=== PATIENT | male | born 1960 | race Caucasian/White ===

== ENCOUNTER 2021-05-22 14:27 | Emergency (ER) | payer BC, OTHER ==
[2021-05-22 15:11] LABS: Urine Blood 3+ (Negative); Urine Glucose Negative (Negative); Urine Protein Negative (Negative); Urine pH 5.5 (5.0-7.0)
[2021-05-22 15:18] LABS: Absolute Lymphocytes (CBC) 1.2 K/uL (0.7-4.9); Basophils % 0.5 % (0-1.3); Hematocrit 45.7 % (39.6-49.0); Lymphocytes % 8.5 % (15.3-44.8); MPV 8.8 fL (7.6-11.3); RBC Red Blood Cell Count 5.15 M/uL (4.33-5.43)
[2021-05-22 15:40] LABS: Albumin 4.1 g/dL (3.4-5.0); Bilirubin Direct 0.1 mg/dL (0-0.2); Potassium 4.3 mmol/L (3.5-5.1); Protein, Total 7.8 g/dL (6.4-8.2)
[2021-05-22 16:17] LABS: Urine Bacteria <20 /HPF (NONE SEEN); Urine Mucus 2+ /HPF (NONE SEEN); Urine RBC >50 /HPF (NONE SEEN)
--- NOTE | 2021-05-22 16:17 | RAD REPORT ---
EXAM DESCRIPTION: CTAbdomen Pelvis W Contrast - 05/22/2021 4:06 pm CLINICAL HISTORY: Abdominal pain. Difficulty urinating COMPARISON: No comparisons TECHNIQUE: Biphasic CT imaging of the abdomen and pelvis was performed with 100 ml non-ionic IV cont rast. All CT scans are performed using dose optimization technique as appropriate and may include automated exposure control or mA/KV adjustment according to patient size. FINDINGS: The lung bases are clear. Mild fatty liver is seen with a small hepatic cysts present. The spleen, pancreas, adrenal glands and kidneys are within normal limits. No bowel obstruction, free air, free fluid or abscess. The appendix is normal. No evidence of signi ficant lymphadenopathy. Assessment of intrapelvic structures is limited by significant streak artifact a Gao catheter is no gloria in the urinary bladder. Moderate lumbar degenerative changes. IMPRESSION: No acute intra-abdominal or pelvic finding. There is significant streak artifact reducing image quality of the pelvis.
[2021-05-22 16:31] LABS: Blood Morphology Comment NOT SEEN (NOT SEEN); Platelet Estimate ADEQ; White Blood Cell Scan OK (OK)
--- NOTE | 2021-05-22 16:40 | EDPHYS ---
Physician Documentation [facility] Name: Chavo Freitas Age: 61 yrs Sex: Male : 1960 Arrival Date: 05/22/2021 Time: 14:31 Bed 18 Private MD: ED Physician Balbir Lundberg HPI: 05/22 15:20 This 61 yrs old Male presents to ER via Ambulatory with complaints of Urinary pm1 Problem. 15:20 Onset: The symptoms/episode began/occurred yesterday. pm1 15:20 The patient presents with urinary symptoms, unable to void. Modifying factors: The pm1 symptoms are alleviated by nothing, the symptoms are aggravated by nothing. Associated signs and symptoms: Pertinent negatives: abdominal pain, constipation, fever, nausea, vomiting. Severity of symptoms: in the emergency department the symptoms are unchanged. The patient has not experienced similar symptoms in the past. The patient has not recently seen a physician. Patient recently taking cough congestion medication. Historical: - Allergies: 14:36 No Known Allergies; ll1 - PMHx: 14:36 None; ll1 - PSHx: 14:36 hip replacements; ll1 - Immunization history:: Client reports receiving the [place] \T\ [place] single-dose vaccine. Flu vaccine status is unknown. - Social history:: Smoking status: Patient denies any tobacco usage or history of. ROS: 15:20 Constitutional: Negative for fever, chills, and weight loss, Cardiovascular: Negative pm1 for chest pain, palpitations, and edema, Respiratory: Negative for shortness of breath, cough, wheezing, and pleuritic chest pain, Abdomen/GI: Negative for abdominal pain, nausea, vomiting, diarrhea, and constipation. 15:20 MS/Extremity: Negative for injury and deformity, Skin: Negative for injury, rash, and discoloration, Neuro: Negative for headache, weakness, numbness, tingling, and seizure. 15:20 : Positive for difficulty urinating. 15:20 All other systems are negative. Exam: 15:20 Constitutional: This is a well developed, well nourished patient who is awake, alert, pm1 and in no acute distress. Head/Face: Normocephalic, atraumatic. 15:20 Back: No spinal tenderness. No costovertebral tenderness. Full range of motion. Skin: Warm, dry with normal turgor. Normal color with no rashes, no lesions, and no evidence of cellulitis. MS/ Extremity: Pulses equal, no cyanosis. Neurovascular intact. Full, normal range of motion. 15:20 Eyes: Exam is negative for acute changes, Extraocular movements: intact throughout, Conjunctiva: no acute changes, no injection. 15:20 ENT: Exam is negative for acute changes, Mouth: no acute changes, Lips: normal, moist, Oral mucosa: normal, pink and intact, moist. 15:20 Cardiovascular: Exam negative for acute changes, Rate: normal, Rhythm: regular, Pulses: no pulse deficits are appreciated. 15:20 Respiratory: Exam negative for acute changes, respiratory distress, shortness of breath, Breath sounds: are clear throughout. 15:20 Abdomen/GI: Inspection: abdomen appears normal, Palpation: abdomen is soft and non-tender, in all quadrants. 15:20 Neuro: Exam negative for acute changes, Orientation: is normal, Mentation: is normal, Motor: is normal, moves all fours. Vital Signs: 14:36 BP 167 / 89; Pulse 97; Resp 17; Temp 98.2; Pulse Ox 99% ; Weight 80.74 kg; Height 5 ft. ll1 11 in. (180.34 cm); Pain 1/10; 14:36 Body Mass Index 24.83 (80.74 kg, 180.34 cm) ll1 MDM: 14:46 Patient medically screened. pm1 16:38 Data reviewed: vital signs. Data interpreted: Pulse oximetry: on room air is 99 %. pm1 Interpretation: normal. Counseling: I had a detailed discussion with the patient and/or guardian regarding: the historical points, exam findings, and any diagnostic results supporting the discharge/admit diagnosis, lab results, radiology results, the need for outpatient follow up, for definitive care, a urologist, to return to the emergency department if symptoms worsen or persist or if there are any questions or concerns that arise at home. 16:42 Refusal of service: The patient/guardian displays adequate decision making capability pm1 and despite a detailed discussion of alternatives, benefits, risks, and consequences refuses: To keep Gao catheter in. Patient requested to be discharged home without catheter. 05/22 14:45 Order name: Basic Metabolic Panel pm1 05/22 14:45 Order name: CBC with Diff pm1 05/22 14:45 Order name: Hepatic Function; Complete Time: 16:37 pm1 05/22 14:45 Order name: Lipase; Complete Time: 16:37 pm1 05/22 14:45 Order name: Urine Microscopic Only; Complete Time: 16:37 pm05/22 14:46 Order name: Basic Metabolic Panel; Complete Time: 16:37 EDMS 05/22 14:45 Order name: IV Saline Lock; Complete Time: 15:07 pm05/22 14:45 Order name: Labs collected and sent; Complete Time: 15:07 pm05/22 14:45 Order name: CT Abd/Pelvis - IV Contrast Only; Complete Time: 16:37 pm05/22 14:45 Order name: Bladder Scanner; Complete Time: 15:05 pm05/22 14:45 Order name: Urine Dipstick-Ancillary (obtain specimen); Complete Time: 15:11 pm05/22 14:46 Order name: CBC with Automated Diff; Complete Time: 16:37 EDMS 05/22 15:12 Order name: Urine Dipstick-Ancillary; Complete Time: 15:21 EDMS 05/22 15:20 Order name: CBC Smear Scan; Complete Time: 16:37 EDMS 05/22 14:52 Order name: Gao; Complete Time: 15:05 pm05/22 16:38 Order name: Leg Bag; Complete Time: 16:51 pm1 Administered Medications: No medications were administered Disposition Summary: 05/22/21 16:39 Discharge Ordered Location: Home pm1 Problem: new pm1 Symptoms: have improved pm1 Condition: Stable pm1 Diagnosis - Retention of urine, unspecified pm1 Followup: pm1 - With: Emergency Department - When: As needed - Reason: Worsening of condition Followup: pm1 - With: Private Physician - When: 2 - 3 days - Reason: Recheck today's complaints, Continuance of care, Re-evaluation by your physician Discharge Instructions: - Discharge Summary Sheet pm1 - Acute Urinary Retention, Male pm1 Forms: - Medication Reconciliation Form pm1 - Thank You Letter pm1 - Antibiotic Education pm1 - Prescription Opioid Use pm1 Addendum: 05/28/2021 04:39 Co-signature as Attending Physician, Balbir Lundberg MD PA/BMX RIDER's history reviewed, m a2 patient interviewed, and examined. I agree with assessment and care plan and confirm the diagnosis (es) above. Signatures: Dispatcher [employer] EDDelonte Galvan, BMX RIDER BMX RIDER pm1 Balbir Lundberg MD MD ma2 Abimael Haskins RN RN ll1
--- NOTE | 2021-05-22 16:40 | ER ---
Nurse's Notes [facility] Name: Chavo Freitas Age: 61 yrs Sex: Male : 1960 Arrival Date: 05/22/2021 Time: 14:31 Bed 18 Private MD: Diagnosis: Retention of urine, unspecified Presentation: 05/22 14:36 Chief complaint: Patient states: Unable to urinate well since last night. No fever. No ll1 significant pain,. Coronavirus screen: Vaccine status: Patient reports receiving the 1st dose of the Covid vaccine. Client denies travel out of the [place] in the last 14 days. At this time, the client does not indicate any symptoms associated with coronavirus-19. Ebola Screen: Patient denies travel to an Ebola-affected area in the 21 days before illness onset. Initial Sepsis Screen: Does the patient meet any 2 criteria? HR > 90 bpm. No. Patient's initial sepsis screen is negative. Does the patient have a suspected source of infection? Yes: Dysuria/Frequency/Urgency/UTI. Risk Assessment: Do you want to hurt yourself or someone else? Patient reports no desire to harm self or others. Onset of symptoms was May 21, 2021. 14:36 Method Of Arrival: Ambulatory ll1 14:36 Acuity: MARGARITO 3 ll1 Historical: - Allergies: 14:36 No Known Allergies; ll1 - PMHx: 14:36 None; ll1 - PSHx: 14:36 hip replacements; ll1 - Immunization history:: Client reports receiving the [place]ango \T\ Ch[place]ango single-dose vaccine. Flu vaccine status is unknown. - Social history:: Smoking status: Patient denies any tobacco usage or history of. Screenin:46 Abuse screen: Denies threats or abuse. Denies injuries from another. Nutritional tr6 screening: No deficits noted. Tuberculosis screening: No symptoms or risk factors identified. Fall Risk None identified. Assessment: 15:46 General: Appears in no apparent distress. uncomfortable, Behavior is calm, cooperative, tr6 appropriate for age. Pain: Complains of pain in lower abdomen. Neuro: No deficits noted. Cardiovascular: No deficits noted. Respiratory: No deficits noted. GI: Bowel sounds present X 4 quads. Abdomen is tender to palpation. : Reports inability to void, since last night. EENT: No deficits noted. Derm: No deficits noted. Musculoskeletal: No deficits noted. 17:05 Reassessment: LAUREN Plummer discussed results and POC with pt. pt verbalized understanding tr6 and would like the bhatti removed. Bhatti removed by this RN and pt tolerated well. pt understands that it is possible to have retention once again. pt verbalized understanding and understands that he will have to come back to the ED if problem persists.. Vital Signs: 14:36 BP 167 / 89; Pulse 97; Resp 17; Temp 98.2; Pulse Ox 99% ; Weight 80.74 kg; Height 5 ft. ll1 11 in. (180.34 cm); Pain 1/10; 14:36 Body Mass Index 24.83 (80.74 kg, 180.34 cm) ll1 ED Course: 14:31 Patient arrived in ED. mr 14:36 Arm band placed on. ll1 14:37 Triage completed. ll1 14:39 Lorna Taylor, ANANDA is Primary Nurse. tr6 14:40 Delonte Plummer NP is PHCP. pm1 14:40 Balbir Lundberg MD is Attending Physician. pm1 15:04 Bladder scan completed. 850. Bhatti cath inserted, using sterile technique, 16 Fr., by mt id, balloon inflated, to gravity drainage, returned clear yellow urine. Patient tolerated well. 15:30 Inserted saline lock: 20 gauge in right antecubital area, using aseptic technique. tr6 Blood collected. 15:46 No apparent distress. Resting quietly. Awaiting lab results. tr6 15:46 Patient has correct armband on for positive identification. Placed in gown. Bed in low tr6 position. Call light in reach. Pulse ox on. NIBP on. Door closed. Noise minimized. Visitors limited. Lights dimmed. Moved to private room. Warm blanket given. Diet: Patient is NPO. 15:46 No provider procedures requiring assistance completed. Patient maintains SpO2 tr6 saturation greater than 95% on room air. 15:[address] tr6 16:05 CT Abd/Pelvis - IV Contrast Only In Process Unspecified. EDMS 16:50 IV discontinued, intact, bleeding controlled, No redness/swelling at site. Pressure tr6 dressing applied. 17:04 Bhatti cath removed intact, balloon deflated. tr6 Administered Medications: No medications were administered Output: 15:04 Urine: 1000ml (Bhatti); Total: 1000ml. mt 17:00 Urine: 400ml (Bhatti); Total: 1400ml. tr6 Outcome: 16:39 Discharge ordered by . pm1 16:49 Discharged to home ambulatory. tr6 16:49 Condition: good 16:49 Discharge instructions given to patient, Instructed on discharge instructions, follow up and referral plans. safety practices, Demonstrated understanding of instructions, follow-up care, Prescriptions given X 17:05 Patient left the ED. tr6 Signatures: Dispatcher [employer] EDAK DevaughnLiseth mr PlummerDelonte, TECHNICAL RECRUITER TECHNICAL RECRUITER pm1 Mariely Holt mt, Lynsay RN RN ll1 Lorna Taylor RN RN tr6
[2021-05-22 17:33] VITALS: BP 167/89; TEMP 98.2; O2SAT 99
== END 2021-05-22 17:05 | disposition home or self-care (01) ==
LOC: ER 14:27
DX: R33.9 Retention of urine, unspecified (principal)
CPT/HCPCS: 85025; 80048; 36415; 80076; 83690; 74177; 51702; 99285; Q9967; 81003; 81015

== ENCOUNTER 2021-05-23 13:59 | Emergency (ER) | payer BC ==
[2021-05-23 14:48] LABS: Urine Blood 3+ (Negative); Urine Glucose Negative (Negative); Urine Protein Negative (Negative)
[2021-05-23 15:21] LABS: Urine Bacteria <20 /HPF (NONE SEEN); Urine Mucus SLIGHT /HPF (NONE SEEN); Urine RBC >50 /HPF (NONE SEEN)
--- NOTE | 2021-05-23 15:55 | ER ---
Nurse's Notes [facility] Name: Chavo Freitas Age: 61 yrs Sex: Male : 1960 Arrival Date: 05/23/2021 Time: 14:00 Bed 17 Private MD: Diagnosis: Retention of urine, unspecified Presentation: 05/23 14:10 Chief complaint: Patient states: Pt stated, " I was just here yesterday and they stated kg that I needed to keep the catheter in but I told them I didn't want to keep it in and I think that was a mistake. It jaramillo really bad when I urinate, barely a squirt will come out but I also haven't been drinking anything.". Coronavirus screen: Vaccine status: Patient reports receiving the 1st dose of the Covid vaccine. Date November 06, 2020 [facility] Client denies travel out of the [place] in the last 14 days. At this time, the client does not indicate any symptoms associated with coronavirus-19. Ebola Screen: Patient negative for fever greater than or equal to 101.5 degrees Fahrenheit, and additional compatible Ebola Virus Disease symptoms Patient denies exposure to infectious person. Patient denies travel to an Ebola-affected area in the 21 days before illness onset. Initial Sepsis Screen: Does the patient meet any 2 criteria? No. Patient's initial sepsis screen is negative. Does the patient have a suspected source of infection? No. Patient's initial sepsis screen is negative. Risk Assessment: Do you want to hurt yourself or someone else? Patient reports no desire to harm self or others. Onset of symptoms was May 21, 2021. 14:10 Method Of Arrival: Ambulatory kg 14:10 Acuity: MARGARITO 3 kg Triage Assessment: 14:16 General: Appears in no apparent distress. Behavior is calm, cooperative, appropriate kg for age, quiet. Pain: Denies pain. GI: No deficits noted. : Reports burning with urination, discharge, Puss when urinating pain with urination. Historical: - Allergies: 14:16 No Known Allergies; kg - Home Meds: 14:16 None [Active]; kg - PMHx: 14:16 None; kg - PSHx: 14:16 hip replacements; kg - Immunization history:: Adult Immunizations not up to date, Client reports receiving the Ch[place]ango \\T\\ Chilango single-dose vaccine. Date received November 06, 2020. - Social history:: Smoking status: Patient denies any tobacco usage or history of. Screenin:11 Abuse screen: Denies threats or abuse. Denies injuries from another. Nutritional tr6 screening: No deficits noted. Tuberculosis screening: No symptoms or risk factors identified. Fall Risk None identified. Assessment: 15:00 General: Appears in no apparent distress. comfortable, Behavior is calm, cooperative, tr6 appropriate for age. Pain: Complains of pain in urethra. Neuro: No deficits noted. Cardiovascular: No deficits noted. Respiratory: No deficits noted. GI: No deficits noted. Bowel sounds present X 4 quads. Abd is soft and non tender X 4 quads. : Reports burning with urination. EENT: No deficits noted. Derm: No deficits noted. Musculoskeletal: No deficits noted. Vital Signs: 14:10 BP 137 / 86; Pulse 84; Resp 20; Temp 97.7(TE); Pulse Ox 99% on R/A; Weight 80.74 kg kg (R); Height 5 ft. 11 in. (180.34 cm) (R); Pain 0/10; 14:10 Body Mass Index 24.83 (80.74 kg, 180.34 cm) kg ED Course: 14:00 Patient arrived in ED. mr 14:16 Triage completed. kg 14:20 Lorna Taylor, ANANDA is Primary Nurse. tr6 14:23 Balbir Lundberg MD is Attending Physician. ma2 14:25 Delonte Plummer NP is PHCP. pm1 14:48 Gao cath inserted, using sterile technique, 16 Fr., by ne, balloon inflated, to tr6 gravity drainage, urine specimen collected. 15:54 Gabino Watkins MD is Referral Physician. pm1 16:11 No provider procedures requiring assistance completed. Patient did not have IV access tr6 during this emergency room visit. 16:11 Patient has correct armband on for positive identification. Bed in low position. Call tr6 light in reach. Side rails up X 1. Door closed. 16:11 Patient placed in an exam room. tr6 Administered Medications: No medications were administered Output: 16:49 Urine: 800ml (Gao); Total: 800ml. tr6 Outcome: 15:54 Discharge ordered by . pm1 16:11 Discharged to home ambulatory. tr6 16:11 Condition: good 16:11 Discharge instructions given to patient, Instructed on discharge instructions, follow up and referral plans. Demonstrated understanding of instructions, follow-up care, Prescriptions given X 1. 16:26 Patient left the ED. tr6 Signatures: Liseth Cantor mr Kavitha, Delonte, GLASS MOLD REPAIRER GLASS MOLD REPAIRER pm1 Balbir Lundberg MD MD ma2 Lorna Taylor RN RN tr6 Brittany Mosqueda RN RN kg
--- NOTE | 2021-05-23 15:55 | EDPHYS ---
Physician Documentation [facility] Name: Chavo Freitas Age: 61 yrs Sex: Male : 1960 Arrival Date: 05/23/2021 Time: 14:00 Bed 17 Private MD: ED Physician Balbir Lundberg HPI: 05/23 14:29 This 61 yrs old Male presents to ER via Ambulatory with complaints of Urinary pm1 Retention. 14:29 The patient presents with urinary symptoms, retention. Onset: The symptoms/episode pm1 began/occurred 2 day(s) ago. Modifying factors: The symptoms are alleviated by Gao catheter placed yesterday, the symptoms are aggravated by Removal of Gao catheter from yesterday. Associated signs and symptoms: Pertinent positives: Burning with urination and pain today, Pertinent negatives: abdominal pain, fever. The patient has not experienced similar symptoms in the past. The patient has been recently seen at the [facility] Emergency Department, yesterday, for similar complaints labs were performed, CT scan was performed. Patient seen yesterday in the ER for the same complaint of urinary retention. Labs and CT scan performed and patient was going to be discharged home with Gao in place for follow-up with urology. Patient wanted to go home without the Gao yesterday. Patient returning back today with complaints of continued urinary retention. Historical: - Allergies: 14:16 No Known Allergies; kg - Home Meds: 14:16 None [Active]; kg - PMHx: 14:16 None; kg - PSHx: 14:16 hip replacements; kg - Immunization history:: Adult Immunizations not up to date, Client reports receiving the Ch[place]ango \T\ Chilango single-dose vaccine. Date received November 06, 2020. - Social history:: Smoking status: Patient denies any tobacco usage or history of. ROS: 14:29 Constitutional: Negative for fever, chills, and weight loss, Cardiovascular: Negative pm1 for chest pain, palpitations, and edema, Respiratory: Negative for shortness of breath, cough, wheezing, and pleuritic chest pain. 14:29 MS/Extremity: Negative for injury and deformity, Skin: Negative for injury, rash, and discoloration. 14:29 Abdomen/GI: Negative for abdominal pain, nausea, vomiting, and diarrhea. 14:29 : Positive for burning with urination, Negative for flank pain. 14:29 All other systems are negative. Exam: 14:29 Constitutional: This is a well developed, well nourished patient who is awake, alert, pm1 and in no acute distress. Head/Face: Normocephalic, atraumatic. 14:29 Back: No spinal tenderness. No costovertebral tenderness. Full range of motion. Skin: Warm, dry with normal turgor. Normal color with no rashes, no lesions, and no evidence of cellulitis. MS/ Extremity: Pulses equal, no cyanosis. Neurovascular intact. Full, normal range of motion. 14:29 Eyes: Exam is negative for acute changes, Extraocular movements: no acute changes, Conjunctiva: no acute changes, no injection. 14:29 Cardiovascular: Rate: normal, Rhythm: regular, Pulses: no pulse deficits are appreciated. 14:29 Respiratory: Exam negative for acute changes, respiratory distress, shortness of breath. 14:29 Abdomen/GI: Inspection: abdomen appears normal, Palpation: abdomen is soft and non-tender, in all quadrants. 14:29 Neuro: Exam negative for acute changes, Orientation: is normal, Mentation: is normal, Motor: is normal, moves all fours. Vital Signs: 14:10 BP 137 / 86; Pulse 84; Resp 20; Temp 97.7(TE); Pulse Ox 99% on R/A; Weight 80.74 kg kg (R); Height 5 ft. 11 in. (180.34 cm) (R); Pain 0/10; 14:10 Body Mass Index 24.83 (80.74 kg, 180.34 cm) kg MDM: 14:23 Patient medically screened. ma2 15:52 Data reviewed: vital signs. Data interpreted: Pulse oximetry: on room air is 99 %. pm1 Interpretation: normal. 15:52 ED course: Patient with urinary retention yesterday and today. Patient with Gao pm1 catheter placed yesterday but patient elected to have it removed prior to discharge. Patient was aware of the potential that he may return today for Gao catheter placement. Patient reports burning and pain with urinating. Urine micro negative but due to symptoms and recent instrumentation will discharge the patient with Bactrim. 05/23 14:28 Order name: Urine Microscopic Only; Complete Time: 15:47 pm1 05/23 14:47 Order name: Urine Dipstick-Ancillary; Complete Time: 15:12 EDMS 05/23 14:27 Order name: Bladder Scanner; Complete Time: 14:40 pm1 05/23 14:27 Order name: Gao Leg Bag; Complete Time: 14:40 pm1 05/23 15:51 Order name: Urine Culture pm1 05/23 14:27 Order name: Gao; Complete Time: 14:40 pm1 05/23 14:28 Order name: Urine Dipstick-Ancillary (obtain specimen); Complete Time: 14:47 pm1 Administered Medications: No medications were administered Disposition Summary: 05/23/21 15:54 Discharge Ordered Location: Home pm1 Problem: new pm1 Symptoms: have improved pm1 Condition: Stable pm1 Diagnosis - Retention of urine, unspecified pm1 Followup: pm1 - With: Emergency Department - When: As needed - Reason: Worsening of condition Followup: pm1 - With: Gabino Watkins MD - When: 2 - 3 days - Reason: Recheck today's complaints, Continuance of care, Re-evaluation by your physician Discharge Instructions: - Discharge Summary Sheet pm1 - Indwelling Urinary Catheter Care, Adult pm1 - Acute Urinary Retention, Male pm1 Forms: - Medication Reconciliation Form pm1 - Thank You Letter pm1 - Antibiotic Education pm1 - Prescription Opioid Use pm1 Prescriptions: - Bactrim DS 800-160 mg Oral Tablet - take 1 tablet by ORAL route every 12 hours for 10 days; 20 tablet; Refills: 0, pm1 Product Selection Permitted Addendum: 05/28/2021 04:37 Co-signature as Attending Physician, Balbir Lundberg MD PA/HOT AIR FURNACE INSTALLER AND REPAIRER's history reviewed, m a2 patient interviewed, and examined. I agree with assessment and care plan and confirm the diagnosis (es) above. Signatures: Dispatcher [employer] EDDelonte Galvan, HOT AIR FURNACE INSTALLER AND REPAIRER HOT AIR FURNACE INSTALLER AND REPAIRER pm1 Balbir Lundberg MD MD ma2 Brittany Mosqueda, RN RN kg
[2021-05-23 16:32] VITALS: BP 137/86; TEMP 97.7; O2SAT 99
== END 2021-05-23 16:26 | disposition home or self-care (01) ==
LOC: ER 13:59
DX: R33.9 Retention of urine, unspecified (principal)
CPT/HCPCS: 51702; 81003; 81015; 99284

== ENCOUNTER 2021-06-29 10:51 | Day surgery (SDC) | payer BC ==
--- NOTE | 2021-06-28 13:43 | RAD REPORT ---
EXAM DESCRIPTION: RAD - Chest Pa And Lat (2 Views) - 06/28/2021 1:37 pm CLINICAL HISTORY: pre-op, patient pending prostate surgery COMPARISON: June 2014 TECHNIQUE: Frontal and lateral views of the chest were obtained. FINDINGS: The lungs are clear. Heart size is normal and central vasculature is within normal limit s. No pleural effusion or pneumothorax seen. No acute bony finding noted. No aortic abnormality. IMPRESSION: No acute cardiopulmonary process. No worrisome change from 2014 imaging.
[2021-06-28 14:07] LABS: Basophils % 0.5 % (0-1.3); Hematocrit 46.7 % (39.6-49.0); Lymphocytes % 15.6 % (15.3-44.8); MPV 8.2 fL (7.6-11.3); RBC Red Blood Cell Count 5.25 M/uL (4.33-5.43)
[2021-06-28 14:15] LABS: Protime INR 1.11
[2021-06-28 14:23] LABS: Urine Appearance CLEAR (Clear); Urine Bilirubin NEGATIVE (Negative); Urine Blood NEGATIVE (Negative); Urine Color YELLOW (Yellow); Urine Glucose NEGATIVE (Negative); Urine Protein NEGATIVE (Negative); Urine Urobilinogen 0.2 mg/dL (0.2-1.0)
[2021-06-28 14:41] LABS: Urine Microscopic Reflex ORDER UMIC
[2021-06-28 14:42] LABS: Urine Bacteria <20 /HPF (NONE SEEN); Urine Mucus 1+ /HPF (NONE SEEN); Urine RBC <5 /HPF (NONE SEEN)
[2021-06-28 16:13] LABS: Potassium 4.2 mmol/L (3.5-5.1)
[~2021-06-29 10:51] MED LIST: AMPICILLIN SODIUM 2 GM in NA CHLORIDE 0.9% 100 ML IVPB ONE; Gentamicin Inj 180 MG in NA CHLORIDE 0.9% 100 ML IVPB ONE
--- NOTE | 2021-06-29 11:49 | EKG ---
Test Date: 2021-06-28 Test Time: 12:16:54 Underground Bolting Machine Operator: MADHURI MEASUREMENT RESULTS: Intervals: Rate: 69 LA: 126 QRSD: 90 QT: 402 QTc: 430 [place]: P: 76 LA: 126 QRS: 78 T: 69 INTERPRETIVE STATEMENTS: Normal sinus rhythm Normal ECG Compared to ECG 06/28/2021 12:16:26 ST (T wave) deviation no longer present Electronically Signed On 06-29-21 11:46:20 CDT by Damion Hartmann
[2021-06-29] MEDS ORDERED: Ringers Lactate 1,000 ML IV ONE ×2 (12:19→16:22)
[2021-06-29] MEDS ORDERED: GLYCOPYRROLATE 0.2 MG/ML SYR ONE ×2 (14:41)
[2021-06-29] MEDS ORDERED: PHENAZOPYRIDINE 100MG TAB PO ONE ×3 (14:51→17:33)
[2021-06-29] MEDS ORDERED: HYDROCODONE/APAP 5/325 MG TAB PO PRN (14:51)
[2021-06-29] MEDS ORDERED: OPIUM/BELLADONNA SUPPOS (30-16.2 MG) PR ONE ×2 (14:51→17:01)
[2021-06-29] MEDS ORDERED: propofoL 200 MG/20 ML VIAL IV ONE ×2 (14:59→15:24)
[2021-06-29] MEDS ORDERED: MIDAZOLAM HCL 2 MG/2 ML INJ ONE (15:24)
[2021-06-29] MEDS ORDERED: FENTANYL CITR 100 MCG/2 ML ONE (15:24)
[2021-06-29] MEDS ORDERED: LIDOCAINE 2% MPF 5 ML VIAL ONE (15:27)
[2021-06-29] MEDS ORDERED: ROCURONIUM 50 MG/5 ML VIAL IV ONE (15:27)
[2021-06-29] MEDS ORDERED: ONDANSETRON 4 MG/2 ML VIAL ONE (16:13)
[2021-06-29] MEDS ORDERED: NALOXONE 0.4 MG/ML VIAL ONE (16:26)
[2021-06-29] MEDS ORDERED: MEPERIDINE HCL 25 MG/ML SYR ONE (16:44)
[2021-06-29] MEDS ORDERED: dexAMETHasone 10 MG/ML VIAL ONE (17:27)
[2021-06-29] MEDS ORDERED: HYDROCODONE/APAP 5/325 MG TAB PO ONE (17:33)
[2021-06-29] MEDS ORDERED: HYDROCODONE/APAP 5/325 MG TAB ONE (17:39)
[2021-06-29] MEDS ORDERED: KETOROLAC 30 MG/ML INJ ONE (17:44)
[2021-06-29 17:55] VITALS: O2SAT 97
[2021-06-29 18:19] VITALS: BP 113/76
[2021-06-29 18:30] VITALS: TEMP 97.6
--- NOTE | 2021-06-30 00:48 | OP ---
Date of Procedure: 06/29/2021 Surgeon: SARAH BEY Preoperative Diagnoses: 1.Benign prostatic hypertrophy with lower urinary tract obstruction. 2.Acute urinary retention. Postoperative Diagnoses: 1.Benign prostatic hypertrophy with lower urinary tract obstruction. 2.Acute urinary retention. Principal Procedure: Cystoscopy and bipolar transurethral resection of the prostate. Indication For Procedure: Mr. Freitas presented to the [facility] having been seen in the emerge ncy department, requiring a catheter to be placed because of inability to void. He was started on Fl omax, but after about a week on the medication, he failed a voiding trial. A catheter had to be rein serted by me because of difficulties placing it by the electromedical equipment repairer in the office associated wit h [place] nurse practitioner. He subsequently underwent a cystoscopic evaluation revealing significant javi tomic obstruction from his prostate and options were discussed to include medical therapy versus surg ical therapy. Further, given the acute nature of his retention and his impatience with the idea of h aving a catheter, which was expressed on multiple occasions, I offered him the opportunity to proceed directly to surgical therapy or await PSA testing, which may require then a biopsy of the prostate i f the PSA is elevated, which is a strong potential given the presence of the catheter. Despite his p rior protestations about wanting to have surgery quickly, the patient deferred to my judgment; and so I recommended we proceed with surgical therapy since he was in acute urinary retention to restore hi s ability to void and we would assess his potential for prostate cancer thereafter. Of note, in preoperative counseling since the patient had taken Flomax, but had never been able to av oid, chronically requiring the catheter, he was not yet familiar with the retrograde ejaculation/anej aculation that is common with Flomax. So, I counseled him as to the strong potential for that to occ ur following a bipolar TURP. He agreed to proceed regardless. Procedure In Detail: The patient was consented in the preoperative holding area before being transfe rred to the operative suite where general anesthesia was induced. He was given ampicillin and gentam icin IV antimicrobial prophylaxis and pneumo boots were provided for DVT prophylaxis. He was placed in the lithotomy position, padded and secured to the table appropriately. His genitalia were prepped using Hibiclens and draped in standard fashion. The indwelling urethral Gao catheter had been rem emile prior to the prepping and draping. The case was then begun by using urethral sounds to dilate t he meatus and fossa navicularis to 30-Rwandan since it would not allow passage by the 26-Rwandan resect oscope despite the indwelling catheter being present. Once dilated, I was then able to pass the rese ctoscope with ease via the urethra and into the bladder, observing the significant median lobe, eleva gloria median bar abutting the trigone as had previously been assessed. There was also significant late ral lobar hypertrophy with some anterior overhang also with intravesical projection. The bladder was entered, and the median lobe was abutting the trigone and approximated in ureteral orifices bilatera lly. The bladder was then decompressed of urine and I refilled it with fluid, stabilizing it. I the n began the resection of the median lobe with direct vision of the left ureteral orifice, creating a trough from the orifice to the verumontanum sparing both. I did the same thing on the right side cosme ving the median component of the median lobe still attached. I then resected the median lobe down to the level of the bladder neck and continued to resect the median bar down to the level of the verumo ntanum to ensure a nice smooth trough. I then began resecting the left lateral lobe and resected janet t from the bladder neck to the verumontanum extending from posteriorly to anteriorly. I did the same thing on the right side, again extending from the bladder neck to the verumontanum and extending fro m posterior to anteriorly, resecting the entirety of the intrusion of the lateral lobes of the prosta te into the urethral lumen. In the end, after significant resection, a beautiful trough was created from the verumontanum all the way into the bladder, taking care to spare a slight degree of anterior tissue not kissing lobes, but to hopefully preserve his antegrade ejaculatory function. All prostate chips were Ellik evacuated from the bladder, and the ureteral orifices were observed to be intact an d uninjured. Careful fulguration was then performed of the entire surface of the prostate ensuring t o stop any and all venous ooze as well as any arterial bleeders observed. This was done on multiple occasions in order to completely gain hemostasis. The bladder was decompressed, and with it complete ly decompressed, additional hemostasis was performed. In the end, the prostatic fossa was completely hemostatic and all prostatic chips had been removed from the bladder. I then left the bladder full and removed the resectoscope. I then placed a 24-Rwandan 3-way Gao catheter into his bladder with e ase and placed 40 cc of sterile water in the balloon. The catheter was placed to moderate traction a nd the patient were awakened from general anesthesia after being taken out of the lithotomy position. He was then transferred to a stretcher and then to the recovery room in good condition. Complications: None. Discharge Disposition: He may follow up in the Urology Clinic on Monday or Monday for catheter remov al and active voiding trial. Subsequent followup should be established between 6 weeks to 3 months l ater with a preclinic PSA obtained to assess the potential for prostate cancer. Of note, preoperativ e RUTHANN was without nodularity felt. BERENICE/JIM Voice ID: [id number] Report ID: [id number]
== END 2021-06-29 18:23 | disposition home or self-care (01) ==
LOC: OR 10:51
PROVIDERS: ATTEND Urology
PROC: 0VT08ZZ Resection of Prostate, Via Natural or Artificial Opening Endoscopic (ICD-10-PCS; principal; 2021-06-29 12:45)
DX: N40.1 Benign prostatic hyperplasia with lower urinary tract symptoms (principal); R33.9 Retention of urine, unspecified; Z20.822 Contact with and (suspected) exposure to COVID-19
CPT/HCPCS: 93005 ×2; 87088; 85025; 87086; 80048; 36415; 85610; 88305; 71046; 52601; U0003; J2704 ×2; J2310; J1580; J2250; J3010; J1100; J2175; J7120 ×2; J2405; J0290; 81003; 81015